=== PATIENT | male | born 1950 | race African-American/Black ===

== ENCOUNTER 2016-08-03 10:12 | Outpatient (CLI) | payer MEDICARE ==
[2016-08-03 15:08] LABS: Hemoglobin A1c 10.9 % (4.0-6.0)
== END 2016-08-03 10:13 | disposition home or self-care (01) ==
LOC: NAVSJIPCSP 10:12
PROVIDERS: ATTEND Internal Medicine
DX: Z12.11 Encounter for screening for malignant neoplasm of colon (principal); E11.65 Type 2 diabetes mellitus with hyperglycemia; E78.5 Hyperlipidemia, unspecified; Z79.899 Other long term (current) drug therapy
CPT/HCPCS: 36415; 80061; 83036